=== PATIENT | male | born 1995 | race Hispanic/Latino ===

== ENCOUNTER 2018-02-24 04:56 | Emergency (ER) | payer BC ==
[2018-02-24] MEDS ORDERED: DEXAMETHASONE 4 MG TAB ONE (05:15)
[2018-02-24] MEDS ORDERED: ONDANSETRON ODT 4 MG TAB ONE (05:15)
== END 2018-02-24 05:55 | disposition home or self-care (01) ==
LOC: EDH 04:56
DX: T63.481A Toxic effect of venom of other arthropod, accidental (unintentional), initial encounter (principal); R11.0 Nausea; Y92.89 Other specified places as the place of occurrence of the external cause
CPT/HCPCS: 99283; J8540